=== PATIENT | female | born 1995 | race Caucasian/White ===

== ENCOUNTER → 2016-11-02 | Outpatient (CLI) | payer SELFPAY | LOC: RAD 14:07 | PROVIDERS: ATTEND Nurse Practitioner Women's Health | DX: Z34.81 Encounter for supervision of other normal pregnancy, first trimester (principal) | CPT/HCPCS: 76801 ==

== ENCOUNTER 2017-01-25 23:30 | Emergency (ER) | payer SELFPAY ==
--- NOTE | 2017-01-26 00:35 | ER Document Report ---
ED Extremity Problem, Lower - General Mode of Arrival: Wheelchair Information source: Patient, Legal Guardian TRAVEL OUTSIDE OF THE [place] IN LAST 30 DAYS: No - General Chief Complaint: Ankle Injury Stated Complaint: FALL/RIGHT ANKLE PAIN Time Seen by Provider: 01/26/17 00:30 Notes: Patient is a 21 year old female presenting to the ED for a possible ankle fracture. Patient tripped and fell while going up the stairs. Patient states this occurred yesterday. Patient states she then flew to [place] for a job training and did not have time to go the ED or doctor. Patient started using a wheelchair at the airport and came to the ED after her flight landed. Patient states she also skinned her knee and elbow but denies any LOC or head injury. Patient denies any previous injury to her right ankle. PCP: [facility] (ITALIA PATINO) - Related Data Allergies/Adverse Reactions: oxycodone [Oxycodone] Allergy (Intermediate, Verified 04/09/14 13:41) ciprofloxacin [From Cipro] Allergy (Verified 04/09/14 13:41) ciprofloxacin HCl [From Cipro] Allergy (Verified 04/09/14 13:41) latex [Latex] Allergy (Verified 04/09/14 13:41) Penicillins Allergy (Verified 04/09/14 13:41) bee Allergy (Uncoded 04/09/14 13:41) shrimp Allergy (Uncoded 04/09/14 13:41) Past Medical History - General Information source: Patient - Social History Smoking Status: Never Smoker Family History: None Patient has suicidal ideation: No Patient has homicidal ideation: No Renal/ Medical History: Reports: Hx Kidney Stones Psychiatric Medical History: Reports: Hx Depression Traumatic Medical History: Reports: Hx Fractures - left shoulder - Immunizations Hx Diphtheria, Pertussis, Tetanus Vaccination: Yes Review of Systems - Review of Systems Constitutional: No symptoms reported EENT: No symptoms reported Cardiovascular: No symptoms reported Respiratory: No symptoms reported Gastrointestinal: No symptoms reported Genitourinary: No symptoms reported Female Genitourinary: No symptoms reported Musculoskeletal: See HPI Skin: No symptoms reported Hematologic/Lymphatic: No symptoms reported Neurological/Psychological: No symptoms reported -: Yes All other systems reviewed and negative Physical Exam - Vital signs Vitals: Temp Pulse Resp BP Pulse Ox 97.9 F 84 18 128/73 H 100 01/25/17 23:36 01/25/17 23:36 01/25/17 23:36 01/25/17 23:36 01/25/17 23:36 - Notes Notes: GENERAL: Alert, interacts well. Mild distress. HEAD: Normocephalic, atraumatic. EYES: Appear normal. Pupils equal, round, and reactive to light. ENT: Moist mucus membranes, tongue midline. NECK: Full range of motion. Supple. Trachea midline. LUNGS: Clear to auscultation bilaterally, no wheezes, rales, or rhonchi. No respiratory distress. HEART: Regular rate and rhythm. No murmurs, gallops, or rubs. ABDOMEN: Soft, non-tender. Non-distended. Normal bowel sounds. EXTREMITIES: Moves all 4 extremities spontaneously. Tenderness at the lateral aspect of the right fibula. No bony tenderness to the foot or proximal tib-fib, or calf tenderness. No tenderness with palpation of the hip. Significant amount of swelling and ecchymosis down into the foot with no open sores, lacerations, or abrasions. Patient NEUROLOGICAL: Alert and oriented x3. Normal speech. No focal neurological deficits. GSC 15. PSYCH: Normal affect, normal mood. SKIN: Warm, dry, normal turgor. (ITALIA PATINO) Discharge - Discharge Clinical Impression: acute closed right fibular fracture Condition: Stable Disposition: HOME, SELF-CARE Instructions: Use of Crutches ([facility]), Ice & Elevation ([facility]), Oral Narcotic Medication ([facility]) Additional Instructions: Fracture of Distal Fibula You have a fracture at the end of the fibula, the smaller bone in the lower leg. The fracture is across the bony bump on the outer side of the ankle. This fracture will usually heal well, but must be protected from the pull of ligaments and tendons at the ankle. If this fracture rotates out of position (or is felt likely to rotate), it must be operated on. Initially, the extremity should be kept elevated, with ice packs applied frequently. This fracture is usually treated with a cast or walking boot. If a walking boot has been selected, it's critical that it NOT be removed without the doctor's approval, not even for sleeping or baths. Healing of this fracture takes about four to eight weeks. Younger patients heal more quickly. An X-ray is usually required during healing to check for complications and to assess healing. Call the doctor or return at once if there is severe swelling, increasing pain, or numbness in the foot. Prescriptions: Hydrocodone/Acetaminophen [[place] 5-325 mg Tablet] 1 tab PO PRN PRN #12 tablet PRN Reason: Forms: Return to Work Referrals: MAGNO CLANCY MD [ACTIVE STAFF] - (Call his office in a.m. to be seen in follow-up in 2-3 days do not bear any weight on this ice elevation pain medication and return for increasing worsening or new symptoms) Scribe Attestation: 01/26/17 02:29 I personally performed the services described in the documentation reviewed the documentation recorded by my scribe in my presence and it accurately and completely records my words and actions (RADHA KELLEY) Scribe Documentation - Scribe Written by Scribe:: Nydia Garcia 01/26/17 4:19 acting as scribe for :: Rex
[2017-01-26] MEDS ORDERED: ONDANSETRON 4 MG TAB.RAPDIS PO ONE (00:49)
[2017-01-26] MEDS ORDERED: HYDROCODONE/ACETAMINOPHEN 5-325 MG TABLET PO ONE (00:49)
--- NOTE | 2017-01-26 02:17 | RADIOLOGY REPORT (SQ) ---
EXAM DESCRIPTION: ANKLE RIGHT COMPLETE COMPLETED DATE/TIME: 01/26/2017 1:58 am REASON FOR STUDY: injury COMPARISON: None. NUMBER OF VIEWS: Three views. TECHNIQUE: AP, lateral, and oblique radiographic images acquired of the right ankle. LIMITATIONS: None. FINDINGS: MINERALIZATION: Normal. BONES: Coronal plane intra-articular fracture of the distal fibula measures 3.2 cm in length and invo lves 0.3 cm inferomedial distraction, no evidence of healing, and moderate associated soft tissue swe lling. JOINTS: No effusions. SOFT TISSUES: No soft tissue swelling. No foreign body. OTHER: No other significant finding. IMPRESSION: Intra-articular fracture of the right distal fibula. TECHNICAL DOCUMENTATION: JOB ID: [id number] [employer]- All Rights Reserved
[2017-01-26] MEDS ORDERED: HYDROCODONE/ACETAMINOPHEN 5-325 MG 6 TAB/DSPK PO PRN (02:27)
[2017-01-26 03:18] VITALS: BP 118/76
== END 2017-01-26 03:10 | disposition home or self-care (01) ==
LOC: ER 23:30
DX: S82.401A Unspecified fracture of shaft of right fibula, initial encounter for closed fracture (principal); W10.9XXA Fall (on) (from) unspecified stairs and steps, initial encounter; Z88.0 Allergy status to penicillin; Z91.040 Latex allergy status; Z88.3 Allergy status to other anti-infective agents; Z91.030 Bee allergy status; Z91.013 Allergy to seafood; Z87.442 Personal history of urinary calculi
CPT/HCPCS: 99283; 73610; S0119